=== PATIENT | female | born 1990 | race Caucasian/White ===

== ENCOUNTER 2019-06-20 07:11 | Emergency (ER) | payer OTHER ==
[2019-06-20] MEDS ORDERED: Promethazine HCl 25 MG/ML VIAL ONE (07:27)
[2019-06-20 08:01] LABS: #Lymphocytes 0.9 thou/uL (1.20-3.40); #Monocytes 0.4 thou/uL (0.11-0.59); #Neutrophils 5.2 thou/uL (1.40-6.50); %Eosinophils 0.2 % (0.0-10.0); %Lymphocytes 14.5 % (21.0-51.0); %Monocytes 5.8 % (0.0-10.0); %Neutrophils 79.5 % (42.0-75.0); Hemoglobin 10.9 g/dL (12.0-16.0); Mean Corpuscular HGB CONC 34.5 g/dL (32.0-36.0); Mean Corpuscular Hemoglobin 29.1 pg (27.0-31.0); Mean Corpuscular Volume 84.6 fL (78.0-98.0); Mean Platelet Volume 9.5 fL (7.4-10.4); Platelet Count 136 thou/uL (130-400); RBC Distribution Width 13.9 % (11.5-14.5); Red Blood Cell (RBC) Count 3.74 mill/uL (4.20-5.40); White Blood Cell (WBC) Count 6.5 thou/uL (4.8-10.8)
[2019-06-20 08:21] LABS: ALT (SGPT) 25 U/L (8-55); AST (SGOT) 43 U/L (5-34); Albumin 3.8 g/dL (3.5-5.0); Alkaline Phosphatase 191 U/L (40-110); Anion Gap 16 mmol/L (10-20); BUN (Urea Nitrogen) 5 mg/dL (7.0-18.7); Bilirubin, Total 0.5 mg/dL (0.2-1.2); Calc. Creatinine Clearance 0 mL/min (70-130); Calcium 9.2 mg/dL (7.8-10.44); Carbon Dioxide 22 mmol/L (22-29); Chloride 103 mmol/L (98-107); Estimated GFR-MDRD Greater than 90; Globulin 3.5 g/dL (2.4-3.5); Glucose 116 mg/dL (70-105); Lipase 21 U/L (8-78); Potassium 3.5 mmol/L (3.5-5.1); Protein, Total 7.3 g/dL (6.0-8.3); Sodium 137 mmol/L (136-145)
--- NOTE | 2019-06-20 08:51 | RAD ---
CHEST 2 VIEWS: Date: 06/20/19 COMPARISON: None. HISTORY: Vomiting blood, body aches with cough. FINDINGS: Lungs are clear. Heart and mediastinal contours are unremarkable. IMPRESSION: No acute findings. POS: [facility]
[2019-06-20 09:13] LABS: Bacteria/HPF 3+ HPF (None Seen); Bilirubin 1+ (Negative); Blood, Urine Negative (Negative); Clarity Turbid (Clear); Glucose, Urine (Dipstick) Normal (Negative); Leukocyte 250 Leu/uL (Negative); Nitrite Negative (Negative); Protein, Urine (Dipstick) 70 mg/dL (Neg-Trace); RBC/HPF 0-3 HPF (0-3); Urobilinogen 12 mg/dL (Less than 2)
== END 2019-06-20 10:50 | disposition home or self-care (01) ==
LOC: ERS 07:11
DX: O98.513 Other viral diseases complicating pregnancy, third trimester (principal); B34.9 Viral infection, unspecified; O21.9 Vomiting of pregnancy, unspecified; O23.43 Unspecified infection of urinary tract in pregnancy, third trimester; Z3A.35 35 weeks gestation of pregnancy
CPT/HCPCS: 71046; 80053; 81003; 81015; 83690; 85025; 96365; 96366; J2550

== ENCOUNTER 2019-07-11 02:55 | Inpatient (IN) | payer OTHER ==
[2019-07-11] MEDS ORDERED: Ketamine 50 MG/ML (10ML VIAL) ONE (03:33)
[2019-07-11] MEDS ORDERED: Midazolam HCl 2 mg/2 ml Vial ONE (03:33)
[2019-07-11] MEDS ORDERED: Fentanyl 100 MCG/2 ML VIAL ONE (03:33)
[2019-07-11] MEDS ORDERED: Methylergonovine 0.2 MG/ML VIAL IM PRN (03:51)
[2019-07-11] MEDS ORDERED: hydrALAZINE 20 MG/ML VIAL SLOW IVP PRN ×2 (03:51)
[2019-07-11] MEDS ORDERED: Milk Of Magnesia 30 ML UDCUP PO PRN (03:51)
[2019-07-11] MEDS ORDERED: Zolpidem Tartrate 5 MG TAB PO PRN (03:51)
[2019-07-11] MEDS ORDERED: Butorphanol Tartrate 1 MG/ML VIAL SLOW IVP PRN (03:51)
[2019-07-11] MEDS ORDERED: Ondansetron PF 4 MG/2 ML Vial IVP PRN (03:51)
[2019-07-11] MEDS ORDERED: Promethazine HCl 25 MG/ML VIAL IM PRN (03:51)
[2019-07-11] MEDS ORDERED: Bisacodyl 10 MG SUPP PR PRN (03:51)
[2019-07-11] MEDS ORDERED: HYDROcodone/Acetaminophen 5/325 mg Tablet PO PRN ×2 (03:51)
[2019-07-11] MEDS ORDERED: NS / Oxytocin 40 units/1000ml 1,000 ML IV SCH (04:00)
[2019-07-11] MEDS ORDERED: Butorphanol Tartrate 1 MG/ML VIAL ONE (04:29)
[2019-07-11] MEDS ORDERED: Oxytocin 10 UNITS/ML VIAL ONE (04:32)
[2019-07-11] MEDS: Lactated Ringer's 1,000 ML IV SCH ×2 (04:34→12:27)
[2019-07-11 04:45] VITALS: BMI 34.7
[2019-07-11 05:13] LABS: Hemoglobin 9.7 g/dL (12.0-16.0); Mean Corpuscular HGB CONC 32.7 g/dL (32.0-36.0); Mean Corpuscular Hemoglobin 26.9 pg (27.0-31.0); Mean Corpuscular Volume 82.5 fL (78.0-98.0); Mean Platelet Volume 8.8 fL (7.4-10.4); Platelet Count 219 thou/uL (130-400); Red Blood Cell (RBC) Count 3.59 mill/uL (4.20-5.40); White Blood Cell (WBC) Count 14.5 thou/uL (4.8-10.8)
[2019-07-11] MEDS ORDERED: FLU VACC QS2019-20(6MOS UP)/PF 60 MCG/0.5 ML SYRINGE IM ONE (05:30)
[2019-07-11 05:51] LABS: HBSAg Index 0.21 S/CO (0-0.99); Hep B Surf Ag Non-Reactive S/CO (NonReactive); Syphilis Antibody Nonreactive (Nonreactive); Syphilis Antibody Index 0.13 S/CO (<1.00 Non-Reactive)
[2019-07-11] MEDS: Docusate Calcium (SURFAK) 240 MG CAP PO SCH (07:58)
[2019-07-11] MEDS: Ferrous Sulfate 325 MG TAB PO SCH ×2 (07:58→15:56)
[2019-07-11] MEDS ORDERED: Adacel (T-DAP) 0.5 ML SYRINGE IM ONE (09:00)
[2019-07-11] MEDS: Ibuprofen 800 MG TAB PO SCH (15:56)
[2019-07-12] MEDS: Ibuprofen 800 MG TAB PO SCH ×5 (00:03→22:14)
[2019-07-12] MEDS: Lactated Ringer's 1,000 ML IV SCH ×4 (00:03→23:58)
[2019-07-12] MEDS: Docusate Calcium (SURFAK) 240 MG CAP PO SCH ×3 (00:03→22:14)
[2019-07-12] MEDS: Ferrous Sulfate 325 MG TAB PO SCH ×2 (09:11→18:18)
[2019-07-13] MEDS: Lactated Ringer's 1,000 ML IV SCH (05:01)
[2019-07-13] MEDS: Ibuprofen 800 MG TAB PO SCH (05:13)
[2019-07-13 07:50] VITALS: BP 120/74; TEMP 97.8
[2019-07-13] MEDS: Docusate Calcium (SURFAK) 240 MG CAP PO SCH (08:46)
[2019-07-13] MEDS: Ferrous Sulfate 325 MG TAB PO SCH (08:46)
== END 2019-07-13 11:13 | disposition home or self-care (01) | DRG 807 ==
LOC: ERS 02:55 → EDSTATUS 03:04 → L&D 03:05 → 3SW 06:06
PROVIDERS: ADMIT Obstetrics & Gynecology; ATTEND Obstetrics & Gynecology
PROC: 10E0XZZ Delivery of Products of Conception, External Approach (ICD-10-PCS; principal; 2019-07-11)
DX: O80 Encounter for full-term uncomplicated delivery (principal); Z37.0 Single live birth; Z3A.39 39 weeks gestation of pregnancy
CPT/HCPCS: 36415; 36416; 85027; 86780; 86850; 86900; 86901; 87340; 90715; J0595; J2250; J2590; J3010